=== PATIENT | female | born 2000 | race Caucasian/White ===

== ENCOUNTER 2021-10-12 05:28 | Outpatient (CLI) | payer BC ==
[~2021-10-12] VITALS: Ht 177.8 cm; Wt 136.4 kg
[~2021-10-12 05:28] MED LIST: ACET-168 PO; ACET325T38 PO; BACL10TA PO; CEPH-507 PO; DICL75TA2 PO; MELO7.5T46 PO; METH4TAB10 PO; NORG1TAB15 PO; TIZA-169 PO
== END 2021-10-12 14:02 | disposition home or self-care (01) ==
LOC: PREOP 05:28
PROVIDERS: ATTEND Surgery
DX: Z01.818 Encounter for other preprocedural examination (principal)

== ENCOUNTER 2021-10-19 08:09 | Day surgery (SDC) | payer BC ==
[~2021-10-19] VITALS: Ht 177.8 cm; Wt 136.4 kg
[2021-10-19] VITALS (9 sets, daily range): BP systolic 116–142; BP diastolic 60–92
[2021-10-19] MEDS: LACTATED RINGERS 1,000 ML IV PRN (09:03)
[2021-10-19 09:10] LABS: BASOPHILS % (AUTO) 0 % (0-10); EOSINOPHILS # (AUTO) 0.2 10^3/uL (0.0-0.3); EOSINOPHILS % (AUTO) 3 % (0-10); HEMATOCRIT 43 % (35-52); HEMOGLOBIN 13.9 g/dL (11.5-16.0); LYMPHOCYTES # (AUTO) 1.8 10^3/uL (1.0-4.0); LYMPHOCYTES % (AUTO) 27 % (12-44); MEAN CORPUSCULAR HEMOGLOBIN 27 pg (25-34); MEAN CORPUSCULAR HGB CONC 32 g/dL (32-36); MEAN CORPUSCULAR VOLUME 84 fL (80-99); MONOCYTES # (AUTO) 0.5 10^3/uL (0.0-1.0); MONOCYTES % (AUTO) 8 % (0-12); NEUTROPHILS # (AUTO) 4.1 10^3/uL (1.8-7.8); NEUTROPHILS % (AUTO) 62 % (42-75); PLATELET COUNT 160 10^3/uL (130-400); WHITE BLOOD COUNT 6.7 10^3/uL (4.3-11.0)
--- NOTE | 2021-10-19 09:34 | Progress Note-Pre Operative ---
Pre-Operative Progress Note H&P Reviewed The H&P was reviewed, patient examined and no changes noted. Time Seen by Provider: 08:33 Date H&P Reviewed: Oct 19, 2021 Time H&P Reviewed: 08:33 Pre-Operative Diagnosis: Pilonidal Cyst PAOLA MUÑIZ DO Oct 19, 2021 09:34
[2021-10-19] MEDS ORDERED: LIDOCAINE/EPI 2% 1:200,00 (XYLOCAINE) 20 ML VIAL ONE (09:51)
[2021-10-19] MEDS ORDERED: ROCURONIUM 10 MG/ML 5 ML SYRINGE IV ONE (10:03)
[2021-10-19] MEDS ORDERED: fentaNYL INJ 100 MCG/2 ML AMP ONE (10:03)
[2021-10-19] MEDS ORDERED: proPOfol 200 MG/20 ML (DIPRIVAN) VIAL IV ONE (10:03)
[2021-10-19] MEDS ORDERED: LIDOCAINE PF 2% 5 ML (XYLOCAINE) VIAL ONE (10:03)
[2021-10-19] MEDS ORDERED: ONDANSETRON 4 MG/2 ML (SDV) Z0FRAN ONE (10:03)
[2021-10-19] MEDS ORDERED: MIDAZOLAM 2 MG/2 ML (VERSED) VIAL ONE (10:04)
[2021-10-19 10:11] LABS: BAND NEUTROPHILS 0 %; BASOPHILS % (MANUAL) 2 %; EOSINOPHILS % (MANUAL) 3 %; LYMPHOCYTES % (MANUAL) 25 %; MONOCYTES % (MANUAL) 7 %; NEUTROPHILS % (MANUAL) 63 %; RBC MORPH NORMAL
[2021-10-19] MEDS ORDERED: ceFAZolin 2 GM IV Premixed 50 ML ONE (10:59)
[2021-10-19] MEDS ORDERED: ceFAZolin 2 GM IV Premixed 50 ML IV ONE (11:15)
[2021-10-19] MEDS ORDERED: SEVOFLURANE (ULTANE) 15 ML INHAL SOLN ONE (11:44)
[2021-10-19] MEDS ORDERED: ACHD5005 PO (11:46)
--- NOTE | 2021-10-19 11:46 | Progress Note-Post Operative ---
Post-Operative Progess Note Surgeon (s)/Polymer Specialist (s) Surgeon PAOLA MUÑIZ DO Polymer Specialist: MARY Fuentes Pre-Operative Diagnosis Pilonidal Cyst Post-Operative Diagnosis same Procedure & Operative Findings Date of Procedure 10/19/21 Procedure Performed/Findings Excision of Pilonidal cyst with 2 layer closure Anesthesia Type GET Estimated Blood Loss Estimated blood loss (mL): scant Specimens/Packing Specimens Removed pilonidal cyst and minimal surrounding tissue PAOLA MUÑIZ DO Oct 19, 2021 11:46
--- NOTE | 2021-10-19 11:48 | Discharge Inst-Surgical ---
Discharge Inst-Surgical Depart Medication/Instructions New, Converted or Re-Newed RX: Transmitted to Pharmacy Patient Instructions Follow up Appt: Make appointment for 1 week. [phone] Instructions: Use donut pillow to sit on. May shower in 24 hours, no tub bath or soaking. Use incentive spirometer at home as directed. No Smoking Skin/Wound Care: May remove bandages in am. You need to leave the sutures in place and come to office to have them removed. Symptoms to Report: Appetite Changes, Extremity Discoloration, Numbness/Tingling, Swelling Increased, Bleeding Excessive, Eyesight Changes, Pain Increased, Urine Color Change, Constipation(Persistent), Fever over 101 degree F, Pain/Pressure in chest, Urinating Difficulty, Cough Up/Vomit Blood, Heart Beat Irreg/Pounding, Pain/Pressure in jaw, Cramps in feet or legs, Lightheadedness, Pain/Pressure in shoulder, Diarrhea(Persistent), Memory Changes Suddenly, Questions/Concerns, Weight gain consecutive days, Dizziness/Fainting, Nausea/Vomiting, Shortness of Breath, Weight gain over 2 pounds If questions or concerns contact your physician Or seek help at emergency department. Activity Activity as Tolerated: Yes Driving Instructions: No Driving/Refer to Dr. Junior Discharge Diet: No Restrictions Diet After 24 Hours: Clear Liquid if Nauseous If Any Problems/Questions/Issu: Contact Your Physician, Go to Emergency Room Skin/Wound Care Infection Signs and Symptoms: Increased Redness, Foul Odor of Wound, Increased Drainage, Skin Itchy or Has a Rash, Increased Swelling, Temperature Above 101 F Bathing Instructions: Shower Stitches/Jacque/Dermabond Dis: Care of PAOLA Littlejohn DO Oct 19, 2021 11:48
[2021-10-19] MEDS ORDERED: GLYCOPYRROLATE 0.2 MG/ML (ROBINUL) 2 ML VIAL ONE (11:49)
[2021-10-19] MEDS ORDERED: NEOSTIGMINE 3 MG/3 ML VIAL ONE (11:49)
[2021-10-19] MEDS ORDERED: ONDANSETRON 4 MG/2 ML (SDV) Z0FRAN IVP PRN (12:00)
[2021-10-19] MEDS ORDERED: HYDROmorphone 2 MG/ML VIAL (DILAUDID) IV ONE (12:00)
[2021-10-19] MEDS ORDERED: morphine INJ 10 MG/ML 1ML (SYR OR VIAL) IVP ONE (12:00)
[2021-10-19] MEDS ORDERED: MEPERIDINE (DEMEROL) INJ 50 MG/ML IVP ONE (12:00)
[2021-10-19] MEDS ORDERED: PROMETHAZINE INJ 25 MG/ML (PHENERGAN) AMP IVP ONE (12:00)
--- NOTE | 2021-10-19 13:59 | Anesthesia-General Post-Op ---
General Patient Condition Mental Status/LOC: Same as Preop Cardiovascular: Satisfactory Nausea/Vomiting: Absent Respiratory: Satisfactory Pain: Controlled Complications: Absent Post Op Complications Complications None Follow Up Care/Instructions Patient Instructions None needed. Anesthesia/Patient Condition Patient Condition Patient is doing well, no complaints, stable vital signs, no apparent adverse anesthesia problems. No complications reported per nursing. SANG CORDOBA CRNA Oct 19, 2021 13:59
--- NOTE | 2021-10-19 17:32 | OPERATIVE REPORT ---
DATE OF SERVICE: 10/19/2021 INDICATION FOR PROCEDURE: The patient is a 21-year-old female who had a history of pilonidal cyst, has had a flare up couple times and wanted to get this removed. FINDINGS: The patient had a pilonidal cyst removed without difficulty. PROCEDURE: Pilonidal cyst excision with complex closure. SURGEON: Brando Ladd DO ULTRASOUND TECH: Lori Harrell MS3. SPECIMEN: Pilonidal cyst. BLOOD LOSS: Scant. FLUIDS: Per anesthesia. POSTOPERATIVE CONDITION: Stable. DESCRIPTION OF PROCEDURE: The patient is a 21-year-old female who had a pilonidal cyst with multiple flare ups and she wanted to get this removed. FINDINGS: The patient had a pilonidal cyst. Two small openings in the midline of the gluteal crease and area of inflammation that was now calm down on the right gluteal cheek. PROCEDURE NOTE: After informed consent was obtained, the patient was brought to the operating room. She was intubated and placed on table in prone position. She was then sterilely prepped and draped in normal fashion. Local lidocaine was used to infiltrate the skin around the area, elected to make a small incision going just around the 2 small openings in the area of where it had been drained and opened before. This was on the right gluteal cheek. I made an incision. It was an open book type incision and then measured about 1.5 cm on each access, infiltrated this with local, made an incision with #15 blade, carried down through the skin into subcutaneous tissue, then deepened down to subcutaneous tissue with Bovie electrocautery, taking this down and around the pilonidal cyst all the way to the sacrum, removing this tissue, passed off table, then obtained hemostasis with Bovie electrocautery. Then copiously irrigated with normal saline, suctioned this out. At this point, I elected to try and close this incision for the patient, closed the subcutaneous tissue with 3-0 Vicryl three interrupted sutures, then closed the skin at the vertex point with a 2-0 PDS. I did a vertical mattress suture and then on either side, I did a horizontal suture to close this, it closed nicely. Area was cleaned and dried, dressing placed and had a discussion with the patient before regarding the fact that we would try to close this, but that there was to 50/50 chance of remaining closed and healing nicely. She was transferred to recovery room in stable condition. Sponge, instrument and needle were correct at the end of the case. Job ID: [id number] DocumentID: [id number] Dictated Date: 10/19/2021 12:21:57 Helmet Hat Sweatband Puncher Date: 10/19/2021 17:32:23 Dictated By: BRANDO LADD DO
== END 2021-10-19 13:40 ==
LOC: SDC 08:09
PROVIDERS: ATTEND Surgery
DX: L05.01 Pilonidal cyst with abscess (principal); E66.01 Morbid (severe) obesity due to excess calories; Z68.41 Body mass index [BMI] 40.0-44.9, adult; Z79.899 Other long term (current) drug therapy
CPT/HCPCS: 36415; 84703; 85007; 85027; 87081; 88304